=== PATIENT | female | born 1970 | race African-American/Black ===

== ENCOUNTER 2019-03-25 07:49 | Outpatient (CLI) | payer OTHER ==
--- NOTE | 2019-03-25 10:00 | MRI ---
MRI RIGHT SHOULDER: DATE: 03/25/2019. PROVIDED CLINICAL HISTORY: Right shoulder pain status post injury. FINDINGS: Evaluation is limited by patient motion, particularly on the axial sequence. There is full-thickness, full-width retracted tearing of the supraspinatus and infraspinatus tendons. No evidence for full-thickness tear involving subscapularis or teres minor. The long head biceps t endon appears grossly intact and normally located, with evaluation limited due to patient motion. The glenoid labrum and glenohumeral articular cartilage are suboptimally evaluated in the absence of joint distention. Acromioclavicular joint osteoarthrosis is demonstrated. Rotator cuff muscular volume demonstrates mi ld muscular volume loss involving supraspinatus and infraspinatus. No focal concerning regional yaron ow or muscular signal abnormality is evident. IMPRESSION: 1. Limited study due to patient motion. 2. Full-thickness, full-width retracted tears of supraspinatus and infraspinatus tendons. 3. Acromioclavicular osteoarthrosis. POS: [facility]
== END 2019-03-25 07:50 | disposition home or self-care (01) ==
LOC: TBSIIMAG 07:49
PROVIDERS: ATTEND Family Medicine
DX: S49.91XD Unspecified injury of right shoulder and upper arm, subsequent encounter (principal); M75.121 Complete rotator cuff tear or rupture of right shoulder, not specified as traumatic; M19.011 Primary osteoarthritis, right shoulder

== ENCOUNTER 2019-06-18 09:06 | Inpatient (IN) | payer OTHER ==
[2019-06-18] MEDS ORDERED: Midazolam HCl 2 mg/2 ml Vial ONE (09:32)
[2019-06-18] MEDS ORDERED: Fentanyl 100 MCG/2 ML VIAL ONE ×2 (09:32→14:44)
[2019-06-18 09:58] LABS: #Eosinphils 0.3 thou/uL (0.0-0.7); #Lymphocytes 1.9 thou/uL (1.20-3.40); #Monocytes 0.4 thou/uL (0.11-0.59); #Neutrophils 2.8 thou/uL (1.40-6.50); %Basophils 0.3 % (0.0-1.0); %Eosinophils 4.9 % (0.0-10.0); %Lymphocytes 34.7 % (21.0-51.0); %Monocytes 7.9 % (0.0-10.0); %Neutrophils 52.3 % (42.0-75.0); Hemoglobin 12.3 g/dL (12.0-16.0); Mean Corpuscular HGB CONC 32.8 g/dL (32.0-36.0); Mean Corpuscular Hemoglobin 28.7 pg (27.0-31.0); Mean Corpuscular Volume 87.4 fL (78.0-98.0); Mean Platelet Volume 7.3 fL (7.4-10.4); Platelet Count 345 thou/uL (130-400); RBC Distribution Width 13.8 % (11.5-14.5); White Blood Cell (WBC) Count 5.4 thou/uL (4.8-10.8)
[2019-06-18 10:20] LABS: Anion Gap 12 mmol/L (10-20); BUN (Urea Nitrogen) 20 mg/dL (7.0-18.7); Calc. Creatinine Clearance 170 mL/min (70-130); Calcium 8.8 mg/dL (7.8-10.44); Carbon Dioxide 23 mmol/L (22-29); Chloride 105 mmol/L (98-107); Estimated GFR-MDRD 69; Glucose 88 mg/dL (70-105); Potassium 4.5 mmol/L (3.5-5.1); Sodium 135 mmol/L (136-145)
[2019-06-18] MEDS ORDERED: Ondansetron PF 4 MG/2 ML Vial IVP PRN (10:43)
[2019-06-18] MEDS ORDERED: HYDROcodone/Acetaminophen 10/325 mg Tablet PO PRN ×2 (10:43)
[2019-06-18] MEDS ORDERED: Zolpidem Tartrate 5 MG TAB PO PRN (10:43)
[2019-06-18] MEDS ORDERED: Ropivacaine 0.2% 550 ML 550 ML NERVE BLCK SCH (10:43)
[2019-06-18] MEDS ORDERED: Promethazine HCl 25 MG/ML VIAL IM PRN ×2 (10:43→14:44)
[2019-06-18] MEDS ORDERED: traMADol HCl 50 MG TAB PO PRN ×2 (10:43)
[2019-06-18] MEDS ORDERED: Lidocaine 2% Jelly 5 ML TUBE ONE (11:47)
[2019-06-18] MEDS ORDERED: Phenylephrine HCL 10 MG/ML VIAL ONE (11:47)
[2019-06-18] MEDS ORDERED: Albuterol Sulfate HFA (OR ONLY) ONE (12:18)
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
[2019-06-18] MEDS ORDERED: Ropivacaine 0.5% HCl/PF (150 MG/30 ML VIAL) ONE (13:07)
[2019-06-18] MEDS ORDERED: Ropivacaine 0.2% HCl/PF (40 MG/20 ML VIAL) ONE (13:07)
[2019-06-18] MEDS ORDERED: Dexamethasone 20 MG/5 ML VIAL ONE (14:28)
[2019-06-18] MEDS ORDERED: Glycopyrrolate 0.2 MG/ML 5 ML SYRINGE ONE (14:28)
[2019-06-18] MEDS ORDERED: Rocuronium Bromide 10 MG/ML (10ML VIAL) ONE (14:28)
[2019-06-18] MEDS ORDERED: Ondansetron PF 4 MG/2 ML Vial ONE (14:28)
[2019-06-18] MEDS ORDERED: ePHEDrine 50 MG/ML VIAL ONE (14:28)
[2019-06-18] MEDS ORDERED: PROVENTIL INHALER 6.7 G (200 INHALATIONS) ONE (14:28)
[2019-06-18] MEDS ORDERED: PROPOFOL 200 MG/20 ML VIAL ONE (14:28)
[2019-06-18] MEDS ORDERED: PHENYLEPHRINE-NS 100 MCG/ML 10 ML SYRINGE ONE (14:28)
[2019-06-18] MEDS ORDERED: Promethazine HCl 25 MG/ML VIAL SLOW IVP PRN (14:44)
[2019-06-18] MEDS ORDERED: Ondansetron HCl/PF 4 MG/2 ML Vial IVP PRN (14:44)
[2019-06-18] MEDS ORDERED: Ketorolac Tromethamine 30 MG/ML VIAL ONE (15:26)
[2019-06-18 17:26] VITALS: BMI 42.9
[2019-06-18] MEDS ORDERED: Morphine 2 MG/ML SYRINGE SLOW IVP PRN (17:27)
[2019-06-18] MEDS ORDERED: Acetaminophen 325 MG TAB PO PRN (17:27)
[2019-06-18] MEDS ORDERED: Methocarbamol 500 MG TAB PO PRN (17:30)
[2019-06-18] MEDS ORDERED: diphenhydrAMINE 50 MG CAP PO PRN (17:30)
[2019-06-18] MEDS ORDERED: Milk Of Magnesia 30 ML UDCUP PO PRN (17:32)
[2019-06-18] MEDS ORDERED: Bisacodyl 10 MG SUPP PR PRN (17:33)
[2019-06-18] MEDS: CEFAZOLIN 2 GM in Premix Bag 1 BAG IVPB SCH (18:19)
[2019-06-18] MEDS: Dextrose 5 %-0.45 % NaCl 1,000 ML IV SCH (18:19)
[2019-06-18] MEDS ORDERED: PROVENTIL INHALER 6.7 G (200 INHALATIONS) INH PRN (18:58)
[2019-06-18] MEDS: hydrALAZINE 25 MG TAB PO SCH (20:35)
[2019-06-18] MEDS: Sacubitril 49 MG/Valsartan 51 MG TABLET PO SCH (20:35)
[2019-06-18] MEDS: Ketorolac Tromethamine 30 MG/ML VIAL IVP SCH (20:36)
[2019-06-18] MEDS: Carvedilol 25 MG TAB PO SCH (20:38)
[2019-06-18] MEDS ORDERED: Methocarbamol 500 MG TAB PO SCH (21:00)
[2019-06-18] MEDS ORDERED: [UNRECOGNIZED DRUG - OTHER] PO SCH (21:00)
[2019-06-19] MEDS: Ketorolac Tromethamine 30 MG/ML VIAL IVP SCH ×3 (03:03→14:42)
[2019-06-19] MEDS: CEFAZOLIN 2 GM in Premix Bag 1 BAG IVPB SCH (03:05)
[2019-06-19] MEDS ORDERED: Mometasone/Formoterol 120 PUFF INHALER INH SCH (06:30)
[2019-06-19] MEDS: hydrALAZINE 25 MG TAB PO SCH (08:34)
[2019-06-19] MEDS: Carvedilol 25 MG TAB PO SCH (08:35)
[2019-06-19] MEDS: Sacubitril 49 MG/Valsartan 51 MG TABLET PO SCH (08:37)
--- NOTE | 2019-06-19 08:54 | OP ---
DATE OF PROCEDURE: 06/18/2019 PREOPERATIVE DIAGNOSIS: Right full-thickness supraspinatus, infraspinatus rotator cuff tear. POSTOPERATIVE DIAGNOSES: Right full-thickness supraspinatus, infraspinatus rotator cuff tear. PROCEDURE PERFORMED: Right open rotator cuff repair with acromioplasty. REGULATORY PROCESS MANAGER: Mamadou Franklin. ANESTHESIA: The patient received a general endotracheal intubation and interscalene block. ESTIMATED BLOOD LOSS: 75 mL. TOURNIQUET TIME: None. IMPLANTS: 5.5 Arthrex metal corkscrew x2 and 4.75 SwiveLock x2. The 5.5 corkscrews were triple loaded. ANTIBIOTICS: Ancef 2 g. COMPLICATIONS: None. HISTORY OF PRESENT ILLNESS: Ms. Garcia is a 48-year-old female, sustained an injury at work. The patient had this back into August, continued to have pain, pain with overhead activities. I discussed with the patient, given the patient's morbid obesity that it would be difficult to perform an arthroscopic repair and felt an open repair to be more efficacious. I discussed with the patient the risks and benefits of the surgery to include pain, scar, bleeding, infection, damage to vital structures, decreased range of motion or strength, fracture above or below where implants were placed, failure of repair, loss of life or limb. I discussed these risks and benefits with the patient and she elected to proceed. DESCRIPTION OF PROCEDURE: Time-out was performed designating the patient's right upper extremity as the operating site, based on site, consents, and marking. After time-out, the patient's right arm was prepped and draped in sterile fashion. We placed Ioban over the skin. After prep and drape of the skin, we made an incision just posterior to anterior edge of the acromion, obliquely down following what would potentially be the raphe distally. We finished our incision about 5.5 cm. We made incision down on the raphe, approximately about 2 cm and bluntly dissected distally. We took the cautery and took the anterior raphe off the acromion anteriorly and released it somewhat posteriorly. We used the saw to cut the acromion for acromioplasty for exposure as well as for removing the acromion to expose our rotator cuff. We cleaned up our rotator cuff using a curette and rongeur to create bleeding bone on the edge of the footprint as well as denuding some of the cartilage surface off. We placed two anchors, one anterior in the footprint, one posterior in the footprint, passing triple loaded anchors passing first a stay stitch that we used as a traction stitch which was in the middle of a U-shaped tear. We placed three stitches anterior and three posterior. The most posterior and anterior stitches were horizontal mattress, the other 4 were Memo-Charles stitches. We then tied from posterior to anterior. We used a limb from each suture and passed a double row laterally to compress down and pass our anterior first with a 4.75 SwiveLock and our posterior 4.75. We then washed the joint out again. We passed #2 Ethibond stitch in a Memo-Charles stitch passed through the bone over the top to close the acromion to the deltoid raphe with three total stitches. We cut those. We then washed, closed with 0 Vicryl, the fascia of the deltoid. We closed subcu with 0, 2-0, and justin. The patient will be admitted overnight, given the patient's morbid obesity and block, I am concerned about potential complication, therefore, she will be admitted overnight for monitoring and see how she does tomorrow. The block was intentionally had diminished volume to decrease potential diaphragmatic weakness because of blockage of the phrenic nerve. The patient will be discharged tomorrow and follow up in 10 to 14 days. Job ID: [id number]
[2019-06-19] MEDS ORDERED: Hydrochlorothiazide 25 MG TAB PO SCH (09:00)
[2019-06-19] MEDS: Dextrose 5 %-0.45 % NaCl 1,000 ML IV SCH (11:12)
[2019-06-19 11:41] VITALS: BP 122/81; TEMP 98.4
== END 2019-06-19 15:15 | disposition home or self-care (01) | DRG 511 ==
LOC: SDC 09:06 → SURG A 17:10
PROVIDERS: ADMIT Orthopaedic Surgery; ATTEND Orthopaedic Surgery
PROC: 0LQ10ZZ Repair Right Shoulder Tendon, Open Approach (ICD-10-PCS; principal; 2019-06-18)
PROC: 0RNJ0ZZ Release Right Shoulder Joint, Open Approach (ICD-10-PCS; 2019-06-18)
DX: S46.011A Strain of muscle(s) and tendon(s) of the rotator cuff of right shoulder, initial encounter (principal); I42.0 Dilated cardiomyopathy; Z68.41 Body mass index [BMI] 40.0-44.9, adult; I10 Essential (primary) hypertension; K21.9 Gastro-esophageal reflux disease without esophagitis; J45.909 Unspecified asthma, uncomplicated; E66.01 Morbid (severe) obesity due to excess calories; Z88.1 Allergy status to other antibiotic agents; W19.XXXA Unspecified fall, initial encounter
CPT/HCPCS: 80048; 85025; A4306; C1713; J0690; J1100; J1885; J2250; J2370; J2405; J2704; J2795; J3010; J3490

== ENCOUNTER 2021-01-03 10:34 | Inpatient (IN) | payer SELFPAY ==
[2021-01-03] MEDS ORDERED: Iopamidol 370 76% 100 ML VIAL ONE (10:42)
[2021-01-03 12:27] LABS: CKMB 2.9 ng/mL (0-6.6)
[2021-01-03 16:41] VITALS: BMI 62.0
[2021-01-03 17:24] LABS: #Eosinphils 0.4 thou/uL (0.0-0.7); #Lymphocytes 1.8 thou/uL (1.20-3.40); #Monocytes 0.4 thou/uL (0.11-0.59); #Neutrophils 2.6 thou/uL (1.40-6.50); %Basophils 0.2 % (0.0-1.0); %Eosinophils 8.6 % (0.0-10.0); %Monocytes 7.6 % (0.0-10.0); %Neutrophils 48.6 % (42.0-75.0); Hemoglobin 12.2 g/dL (12.0-16.0); Mean Corpuscular HGB CONC 32.2 g/dL (32.0-36.0); Mean Corpuscular Volume 86.9 fL (78.0-98.0); Mean Platelet Volume 7.3 fL (7.4-10.4); Platelet Count 334 thou/uL (130-400); RBC Distribution Width 15.1 % (11.5-14.5); Red Blood Cell (RBC) Count 4.36 mill/uL (4.20-5.40); White Blood Cell (WBC) Count 5.3 thou/uL (4.8-10.8)
[2021-01-03 17:49] LABS: Troponin I 0.047 ng/mL (< 0.028)
[2021-01-03 17:55] LABS: ALT (SGPT) 13 U/L (8-55); AST (SGOT) 20 U/L (5-34); Albumin 3.5 g/dL (3.5-5.0); Alkaline Phosphatase 76 U/L (40-110); Anion Gap 14 mmol/L (10-20); BUN (Urea Nitrogen) 19 mg/dL (7.0-18.7); Bilirubin, Total 0.4 mg/dL (0.2-1.2); Calc. Creatinine Clearance 147 mL/min (70-130); Calcium 8.9 mg/dL (7.8-10.44); Carbon Dioxide 27 mmol/L (22-29); Chloride 101 mmol/L (98-107); Globulin 3.4 g/dL (2.4-3.5); Glucose 83 mg/dL (70-105); Magnesium 1.9 mg/dL (1.6-2.6); Potassium 3.3 mmol/L (3.5-5.1); Protein, Total 6.9 g/dL (6.0-8.3); Sodium 139 mmol/L (136-145)
[2021-01-03] MEDS ORDERED: Potassium Chloride 20 MEQ TAB PO SCH (18:15)
[2021-01-03] MEDS: Benzonatate 100 MG CAP PO PRN (19:38)
[2021-01-03] MEDS: Famotidine 20 MG TAB PO SCH (20:22)
[2021-01-03 21:52] LABS: Troponin I 0.046 ng/mL (< 0.028)
[2021-01-04 05:06] LABS: #Eosinphils 0.3 thou/uL (0.0-0.7); #Monocytes 0.4 thou/uL (0.11-0.59); #Neutrophils 2.2 thou/uL (1.40-6.50); %Basophils 0.4 % (0.0-1.0); %Eosinophils 6.9 % (0.0-10.0); %Lymphocytes 40.4 % (21.0-51.0); %Monocytes 8.8 % (0.0-10.0); %Neutrophils 43.6 % (42.0-75.0); Hemoglobin 12.1 g/dL (12.0-16.0); Mean Corpuscular HGB CONC 31.5 g/dL (32.0-36.0); Mean Corpuscular Hemoglobin 27.3 pg (27.0-31.0); Mean Corpuscular Volume 86.7 fL (78.0-98.0); Mean Platelet Volume 7.4 fL (7.4-10.4); Platelet Count 345 thou/uL (130-400); RBC Distribution Width 15.1 % (11.5-14.5); Red Blood Cell (RBC) Count 4.43 mill/uL (4.20-5.40)
[2021-01-04 05:29] LABS: Anion Gap 14 mmol/L (10-20); BUN (Urea Nitrogen) 19 mg/dL (7.0-18.7); Calc. Creatinine Clearance 170 mL/min (70-130); Calcium 8.6 mg/dL (7.8-10.44); Carbon Dioxide 23 mmol/L (22-29); Chloride 103 mmol/L (98-107); Glucose 109 mg/dL (70-105); Potassium 3.5 mmol/L (3.5-5.1); Sodium 136 mmol/L (136-145)
[2021-01-04] MEDS: Furosemide 20 MG/2 ML VIAL SLOW IVP SCH ×2 (06:19→14:46)
[2021-01-04] MEDS: Famotidine 20 MG TAB PO SCH ×2 (08:13→21:58)
[2021-01-04] MEDS ORDERED: Magnesium 2 GM/50 ML 2 GM in Premix Bag 1 BAG IVPB SCH (08:15)
[2021-01-04] MEDS ORDERED: Aspirin 325 MG TAB PO SCH ×3 (09:00→10:45)
[2021-01-04] MEDS ORDERED: Non-Formulary Item 1 EACH (Albuterol Sulfate [Proventil Hfa] 200 PUFF Inh) INH PRN (09:17)
[2021-01-04] MEDS ORDERED: Aspirin Chewable 81 MG TAB PO SCH (10:45)
[2021-01-04] MEDS: Benzonatate 100 MG CAP PO PRN (11:15)
[2021-01-04] MEDS: Albuterol 200 PUFF (6.7GM INHALER) INH PRN ×3 (11:50→22:36)
[2021-01-04] MEDS: Acetaminophen 325 MG TAB PO PRN (14:54)
[2021-01-04] MEDS ORDERED: FLU VACC QS2020-21(6MOS UP)/PF 60 MCG/0.5 ML SYRINGE IM ONE (17:45)
[2021-01-04] MEDS ORDERED: Potassium Chloride 20 MEQ TAB PO SCH (18:30)
[2021-01-04] MEDS ORDERED: Carvedilol 25 MG TAB PO SCH ×2 (21:00)
[2021-01-04] MEDS: Carvedilol 25 MG TAB PO SCH (21:57)
[2021-01-05 05:34] LABS: #Eosinphils 0.3 thou/uL (0.0-0.7); #Monocytes 0.6 thou/uL (0.11-0.59); #Neutrophils 2.8 thou/uL (1.40-6.50); %Basophils 0.3 % (0.0-1.0); %Eosinophils 5.9 % (0.0-10.0); %Lymphocytes 34.9 % (21.0-51.0); %Monocytes 9.6 % (0.0-10.0); %Neutrophils 49.3 % (42.0-75.0); Hemoglobin 12.2 g/dL (12.0-16.0); Mean Corpuscular HGB CONC 32.4 g/dL (32.0-36.0); Mean Corpuscular Hemoglobin 28.3 pg (27.0-31.0); Mean Corpuscular Volume 87.4 fL (78.0-98.0); Mean Platelet Volume 7.4 fL (7.4-10.4); Platelet Count 335 thou/uL (130-400); Red Blood Cell (RBC) Count 4.31 mill/uL (4.20-5.40); White Blood Cell (WBC) Count 5.7 thou/uL (4.8-10.8)
[2021-01-05] MEDS: Furosemide 20 MG/2 ML VIAL SLOW IVP SCH ×2 (05:58→15:39)
[2021-01-05 06:00] LABS: Anion Gap 10 mmol/L (10-20); BUN (Urea Nitrogen) 24 mg/dL (7.0-18.7); Calc. Creatinine Clearance 159 mL/min (70-130); Calcium 8.7 mg/dL (7.8-10.44); Carbon Dioxide 30 mmol/L (22-29); Chloride 103 mmol/L (98-107); Glucose 109 mg/dL (70-105); Potassium 3.6 mmol/L (3.5-5.1); Sodium 139 mmol/L (136-145)
[2021-01-05] MEDS: Mometasone 100 MCG/Formoterol 5 MCG 120 PUFF INHALER INH SCH (07:26)
[2021-01-05] MEDS ORDERED: DISK W DE IH SCH (09:00)
[2021-01-05] MEDS ORDERED: FLUTICASONE IH SCH (09:00)
[2021-01-05] MEDS ORDERED: SALMETEROL IH SCH (09:00)
[2021-01-05] MEDS ORDERED: [UNRECOGNIZED DRUG - OTHER] IH SCH (09:00)
[2021-01-05] MEDS: Aspirin Chewable 81 MG TAB PO SCH (09:11)
[2021-01-05] MEDS: Famotidine 20 MG TAB PO SCH ×2 (09:11→20:38)
[2021-01-05] MEDS: Carvedilol 25 MG TAB PO SCH ×2 (09:12→20:38)
[2021-01-05] MEDS: Benzonatate 100 MG CAP PO PRN (09:17)
[2021-01-05] MEDS: Albuterol 200 PUFF (6.7GM INHALER) INH PRN ×2 (09:53→20:04)
[2021-01-05] MEDS: Sacubitril 49 MG/Valsartan 51 MG TABLET PO SCH (20:38)
[2021-01-06] MEDS: Benzonatate 100 MG CAP PO PRN ×2 (03:56→21:02)
[2021-01-06 04:48] LABS: #Basophils 0.1 thou/uL (0.0-0.2); #Eosinphils 0.2 thou/uL (0.0-0.7); #Monocytes 0.4 thou/uL (0.11-0.59); #Neutrophils 1.9 thou/uL (1.40-6.50); %Basophils 1.9 % (0.0-1.0); %Eosinophils 4.5 % (0.0-10.0); %Monocytes 7.9 % (0.0-10.0); %Neutrophils 41.6 % (42.0-75.0); Hemoglobin 12.8 g/dL (12.0-16.0); Mean Corpuscular HGB CONC 32.5 g/dL (32.0-36.0); Mean Corpuscular Hemoglobin 28.1 pg (27.0-31.0); Mean Corpuscular Volume 86.2 fL (78.0-98.0); Mean Platelet Volume 7.6 fL (7.4-10.4); Platelet Count 350 thou/uL (130-400); RBC Distribution Width 15.1 % (11.5-14.5); Red Blood Cell (RBC) Count 4.57 mill/uL (4.20-5.40); White Blood Cell (WBC) Count 4.4 thou/uL (4.8-10.8)
[2021-01-06 05:09] LABS: Anion Gap 14 mmol/L (10-20); BUN (Urea Nitrogen) 22 mg/dL (7.0-18.7); Calc. Creatinine Clearance 166 mL/min (70-130); Calcium 8.7 mg/dL (7.8-10.44); Carbon Dioxide 27 mmol/L (22-29); Chloride 104 mmol/L (98-107); Glucose 112 mg/dL (70-105); Potassium 3.7 mmol/L (3.5-5.1); Sodium 141 mmol/L (136-145)
[2021-01-06] MEDS ORDERED: Furosemide 40 MG/4 ML VIAL SLOW IVP SCH (06:00)
[2021-01-06] MEDS: Mometasone 100 MCG/Formoterol 5 MCG 120 PUFF INHALER INH SCH (07:04)
[2021-01-06] MEDS: Albuterol 200 PUFF (6.7GM INHALER) INH PRN ×2 (07:04→22:15)
[2021-01-06] MEDS: Sacubitril 49 MG/Valsartan 51 MG TABLET PO SCH ×2 (08:39→21:00)
[2021-01-06] MEDS: Carvedilol 25 MG TAB PO SCH ×2 (08:39→20:59)
[2021-01-06] MEDS: Famotidine 20 MG TAB PO SCH ×2 (08:39→21:00)
[2021-01-06] MEDS: Aspirin Chewable 81 MG TAB PO SCH (08:39)
[2021-01-06] MEDS: Acetaminophen 325 MG TAB PO PRN ×2 (08:40→20:59)
[2021-01-06] MEDS ORDERED: Spironolactone 25 MG TAB PO SCH (13:30)
[2021-01-07] MEDS: Aspirin Chewable 81 MG TAB PO SCH (09:02)
[2021-01-07] MEDS: Sacubitril 49 MG/Valsartan 51 MG TABLET PO SCH ×2 (09:02→19:48)
[2021-01-07] MEDS: Famotidine 20 MG TAB PO SCH ×2 (09:02→19:48)
[2021-01-07] MEDS: Carvedilol 25 MG TAB PO SCH ×2 (09:02→19:48)
[2021-01-07] MEDS: Acetaminophen 325 MG TAB PO PRN ×3 (09:03→19:49)
[2021-01-07] MEDS: Mometasone 100 MCG/Formoterol 5 MCG 120 PUFF INHALER INH SCH (09:40)
[2021-01-07] MEDS: Albuterol 200 PUFF (6.7GM INHALER) INH PRN ×2 (09:40→21:42)
[2021-01-07] MEDS: Benzonatate 100 MG CAP PO PRN (19:48)
[2021-01-08] MEDS: Famotidine 20 MG TAB PO SCH ×2 (09:25→20:35)
[2021-01-08] MEDS: Sacubitril 49 MG/Valsartan 51 MG TABLET PO SCH ×2 (09:25→20:35)
[2021-01-08] MEDS: Aspirin Chewable 81 MG TAB PO SCH (09:25)
[2021-01-08] MEDS: Carvedilol 25 MG TAB PO SCH ×2 (09:25→20:35)
[2021-01-08] MEDS: Benzonatate 100 MG CAP PO PRN ×2 (09:31→20:35)
[2021-01-08] MEDS: Acetaminophen 325 MG TAB PO PRN ×2 (09:36→20:35)
[2021-01-08] MEDS: Mometasone 100 MCG/Formoterol 5 MCG 120 PUFF INHALER INH SCH (10:11)
[2021-01-08] MEDS: Albuterol 200 PUFF (6.7GM INHALER) INH PRN ×2 (10:12→20:39)
[2021-01-08] MEDS ORDERED: Furosemide 20 MG TAB PO SCH (12:45)
[2021-01-08 14:42] LABS: Hemoglobin 12.8 g/dL (12.0-16.0); Mean Corpuscular HGB CONC 31.2 g/dL (32.0-36.0); Mean Corpuscular Hemoglobin 27.4 pg (27.0-31.0); Mean Corpuscular Volume 87.8 fL (78.0-98.0); Mean Platelet Volume 7.7 fL (7.4-10.4); Platelet Count 375 thou/uL (130-400); RBC Distribution Width 14.9 % (11.5-14.5); Red Blood Cell (RBC) Count 4.68 mill/uL (4.20-5.40); White Blood Cell (WBC) Count 5.5 thou/uL (4.8-10.8)
[2021-01-08 14:59] LABS: Anion Gap 11 mmol/L (10-20); BUN (Urea Nitrogen) 23 mg/dL (7.0-18.7); Calc. Creatinine Clearance 143 mL/min (70-130); Calcium 8.9 mg/dL (7.8-10.44); Carbon Dioxide 29 mmol/L (22-29); Chloride 102 mmol/L (98-107); Glucose 80 mg/dL (70-105); Potassium 3.9 mmol/L (3.5-5.1); Sodium 138 mmol/L (136-145)
[2021-01-09 05:04] LABS: Calc. Creatinine Clearance 166 mL/min (70-130); Potassium 3.8 mmol/L (3.5-5.1)
[2021-01-09] MEDS: Albuterol 200 PUFF (6.7GM INHALER) INH PRN (07:40)
[2021-01-09] MEDS: Mometasone 100 MCG/Formoterol 5 MCG 120 PUFF INHALER INH SCH (07:41)
[2021-01-09] MEDS: Sacubitril 49 MG/Valsartan 51 MG TABLET PO SCH (08:59)
[2021-01-09] MEDS: Acetaminophen 325 MG TAB PO PRN (08:59)
[2021-01-09] MEDS: Aspirin Chewable 81 MG TAB PO SCH (08:59)
[2021-01-09] MEDS: Carvedilol 25 MG TAB PO SCH (08:59)
[2021-01-09] MEDS: Famotidine 20 MG TAB PO SCH (08:59)
[2021-01-09] MEDS ORDERED: Furosemide 20 MG TAB PO SCH (09:00)
[2021-01-09] MEDS: Benzonatate 100 MG CAP PO PRN (09:05)
[2021-01-09] MEDS ORDERED: Spironolactone 25 MG TAB PO SCH (09:45)
[2021-01-09 11:53] VITALS: BP 118/71; TEMP 97.8
[2021-01-09] MEDS ORDERED: predniSONE 20 MG TAB PO SCH (12:45)
[2021-01-09] MEDS ORDERED: Amoxicillin/Potassium Clav 875 MG TAB PO SCH (21:00)
[2021-01-10] MEDS ORDERED: predniSONE 20 MG TAB PO SCH (08:00)
[2021-01-10] MEDS ORDERED: Spironolactone 25 MG TAB PO SCH (09:00)
== END 2021-01-09 15:14 | disposition home or self-care (01) | DRG 280 ==
LOC: ERS 10:34 → 3SE 12:03 → OBSVTOIN 01-04 12:05 → 2NO 01-05 18:23
PROVIDERS: ADMIT Internal Medicine; ATTEND Internal Medicine
DX: I11.0 Hypertensive heart disease with heart failure (principal); I21.A1 Myocardial infarction type 2; J96.01 Acute respiratory failure with hypoxia; Z20.822 Contact with and (suspected) exposure to COVID-19; Z23 Encounter for immunization; J18.9 Pneumonia, unspecified organism; J45.901 Unspecified asthma with (acute) exacerbation; Z68.44 Body mass index [BMI] 60.0-69.9, adult; N17.9 Acute kidney failure, unspecified; I50.23 Acute on chronic systolic (congestive) heart failure; I42.9 Cardiomyopathy, unspecified; I42.8 Other cardiomyopathies; E66.01 Morbid (severe) obesity due to excess calories; E87.6 Hypokalemia; R00.1 Bradycardia, unspecified; Z88.1 Allergy status to other antibiotic agents; Z79.899 Other long term (current) drug therapy; Z79.51 Long term (current) use of inhaled steroids; Z82.49 Family history of ischemic heart disease and other diseases of the circulatory system
CPT/HCPCS: 36415; 71045; 71275; 80048; 82553; 82565; 83735; 83880; 84132; 84443; 85025; 85027; 85379; 90471; 90662; 90732; 93005; 93306; 93798; 96374; 96375; G0008; G0009; G0378; J1940; J3475; J7512; Q9967

== ENCOUNTER 2022-01-29 08:08 | Outpatient (CLI) | payer MEDICARE | END 2022-01-29 08:09 | disposition home or self-care (01) | LOC: BICMAMMO 08:08 | PROVIDERS: ATTEND Family Medicine | DX: Z12.31 Encounter for screening mammogram for malignant neoplasm of breast (principal); Z80.3 Family history of malignant neoplasm of breast | CPT/HCPCS: 77063; 77067 ==

== ENCOUNTER 2022-05-10 09:12 | Outpatient (CLI) | payer OTHER | END 2022-05-10 09:13 | disposition home or self-care (01) | LOC: DTY/OP 09:12 | PROVIDERS: ATTEND Surgery | DX: E66.01 Morbid (severe) obesity due to excess calories (principal) | CPT/HCPCS: 97802 ==

== ENCOUNTER 2022-08-09 08:46 | Outpatient (CLI) | payer OTHER ==
[2022-08-09 11:13] LABS: #Eosinphils 0.2 10x3/uL (0.0-0.5); #Monocytes 0.4 10x3/uL (0.0-1.1); #Neutrophils 2.5 10x3/uL (1.5-8.4); %Basophils 0.8 % (0.0-2.0); %Eosinophils 3.2 % (0.0-6.0); %Lymphocytes 37.8 % (18.0-47.0); %Monocytes 7.2 % (0.0-10.0); %Neutrophils 50.8 % (40.0-75.0); Hemoglobin 12.9 g/dL (12.0-15.5); Mean Corpuscular HGB CONC 32.7 g/dL (32.0-36.0); Mean Corpuscular Hemoglobin 28.8 pg (27.0-33.0); Mean Corpuscular Volume 87.9 fl (81.6-98.3); Mean Platelet Volume 10.3 fl (7.4-10.4); Platelet Count 355 10x3/uL (150-450); RBC Distribution Width 15.3 % (11.5-14.5); Red Blood Cell (RBC) Count 4.48 10x6/uL (3.90-5.03)
[2022-08-09 11:43] LABS: ALT (SGPT) 15 U/L (8-55); AST (SGOT) 23 U/L (5-34); Albumin 4.1 g/dL (3.5-5.0); Alkaline Phosphatase 53 U/L (40-110); Anion Gap 14 mmol/L (10-20); BUN (Urea Nitrogen) 33 mg/dL (7.0-18.7); Bilirubin, Total 0.5 mg/dL (0.2-1.2); Calc. Creatinine Clearance 0 mL/min (70-130); Calcium 9.5 mg/dL (7.8-10.44); Carbon Dioxide 23 mmol/L (22-29); Chloride 106 mmol/L (98-107); Estimated GFR 47; Globulin 3.3 g/dL (2.4-3.5); Glucose 98 mg/dL (70-105); Potassium 5.3 mmol/L (3.5-5.1); Protein, Total 7.4 g/dL (6.0-8.3); Sodium 138 mmol/L (136-145)
[2022-08-09 14:45] LABS: Hemoglobin A1c 5.4 % (4.0-6.0)
== END 2022-08-09 08:47 | disposition home or self-care (01) ==
LOC: LABBT 08:46
PROVIDERS: ATTEND Surgery
DX: Z01.818 Encounter for other preprocedural examination (principal); E66.01 Morbid (severe) obesity due to excess calories; Z20.822 Contact with and (suspected) exposure to COVID-19; I51.7 Cardiomegaly; R94.31 Abnormal electrocardiogram [ECG] [EKG]
CPT/HCPCS: 71046; 80053; 83036; 85025; 87811; 93005; 93010

== ENCOUNTER 2022-08-09 09:00 | Inpatient (IN) | payer OTHER ==
[2022-08-10 12:36] VITALS: BMI 64.8
[2022-08-14] MEDS ORDERED: Midazolam HCl 2 mg/2 ml Vial ONE (06:35)
[2022-08-14] MEDS ORDERED: fentaNYL Citrate/PF 100 MCG/2 ML SYRINGE ONE ×2 (06:35→06:57)
[2022-08-14] MEDS ORDERED: EPINEPHrine 1 MG/ML AMP ONE (06:47)
[2022-08-14] MEDS ORDERED: Bupivacaine 0.25% HCL 30 ML VIAL ONE (06:47)
[2022-08-14] MEDS ORDERED: Promethazine HCl 25 MG/ML VIAL ONE ×2 (06:57→13:55)
[2022-08-14] MEDS ORDERED: Lidocaine 2% 6 ML SYR ONE (06:57)
[2022-08-14] MEDS ORDERED: CEFAZOLIN 2 GM VIAL ONE (07:04)
[2022-08-14] MEDS ORDERED: Sodium Chloride 0.9% 100 ML ONE (07:04)
[2022-08-14] MEDS ORDERED: Heparin 5,000 UNITS/ML VIAL ONE (07:04)
[2022-08-14] MEDS ORDERED: ePHEDrine 50 MG/ML VIAL ONE (07:49)
[2022-08-14] MEDS ORDERED: Ondansetron PF 4 MG/2 ML Vial ONE ×2 (07:49→11:15)
[2022-08-14] MEDS ORDERED: PHENYLEPHRINE-NS 100 MCG/ML 10 ML SYRINGE ONE (07:49)
[2022-08-14] MEDS ORDERED: Glycopyrrolate 0.2 MG/ML 5 ML SYRINGE ONE (07:49)
[2022-08-14] MEDS ORDERED: PROPOFOL 200 MG/20 ML VIAL ONE (07:49)
[2022-08-14] MEDS ORDERED: Ketorolac Tromethamine 30 MG/ML VIAL ONE (07:49)
[2022-08-14] MEDS ORDERED: Rocuronium Bromide 10 MG/ML (10ML VIAL) ONE (07:49)
[2022-08-14] MEDS ORDERED: Rocuronium Bromide 50 MG/5 ML VIAL ONE (08:37)
[2022-08-14] MEDS ORDERED: SUGAMMADEX SODIUM 200 MG/2 ML VIAL ONE (08:37)
[2022-08-14] MEDS ORDERED: Dextrose 50% Abboject 50 ML SYRINGE SLOW IVP PRN (09:19)
[2022-08-14] MEDS ORDERED: Hydrocodone-Acetamin 15 ML UDCUP PO PRN (09:19)
[2022-08-14] MEDS ORDERED: diphenhydrAMINE 50 MG/ML VIAL IVP PRN (09:19)
[2022-08-14] MEDS ORDERED: Dextrose 5% in Water 1,000 ML IV PRN (09:19)
[2022-08-14] MEDS ORDERED: Morphine 2 MG/ML VIAL SLOW IVP PRN (09:19)
[2022-08-14] MEDS ORDERED: Promethazine HCl 25 MG/ML VIAL IM PRN ×2 (09:19→09:34)
[2022-08-14] MEDS ORDERED: Ondansetron PF 4 MG/2 ML Vial IVP PRN (09:19)
[2022-08-14] MEDS ORDERED: hydrALAZINE 20 MG/ML VIAL SLOW IVP PRN (09:19)
[2022-08-14] MEDS ORDERED: Morphine 4 MG/ML VIAL SLOW IVP PRN (09:19)
[2022-08-14] MEDS: 1/2 NS w/KCL 20 mEq 1,000 ML IV SCH ×2 (09:30→18:21)
[2022-08-14] MEDS ORDERED: Ondansetron HCl/PF 4 MG/2 ML Vial IVP PRN (09:34)
[2022-08-14] MEDS ORDERED: Promethazine HCl 25 MG/ML VIAL IVPB PRN (09:34)
[2022-08-14] MEDS ORDERED: HYDROmorphone 2 MG/ML VIAL SLOW IVP PRN (09:34)
[2022-08-14] MEDS ORDERED: Fentanyl 100 MCG/2 ML VIAL ONE ×2 (09:42→14:43)
[2022-08-14] MEDS ORDERED: Labetalol HCl 100 MG/20 ML VIAL ONE (10:13)
[2022-08-14] MEDS: Ketorolac Tromethamine 30 MG/ML VIAL IVP SCH ×2 (12:00→18:21)
[2022-08-14] MEDS ORDERED: hydrALAZINE 20 MG/ML VIAL ONE (14:41)
[2022-08-14] MEDS: CEFAZOLIN 2 GM in Sodium Chloride 0.9% 100 ML IVPB SCH ×2 (16:20→21:24)
[2022-08-15] MEDS: 1/2 NS w/KCL 20 mEq 1,000 ML IV SCH ×2 (04:22→09:59)
[2022-08-15] MEDS: Ketorolac Tromethamine 30 MG/ML VIAL IVP SCH ×3 (04:22→12:33)
[2022-08-15 05:33] LABS: #Eosinphils 0.1 thou/uL (0.0-0.7); #Lymphocytes 1.8 thou/uL (1.20-3.40); #Monocytes 0.6 thou/uL (0.11-0.59); #Neutrophils 4.2 thou/uL (1.40-6.50); %Basophils 0.4 % (0.0-1.0); %Eosinophils 1.8 % (0.0-10.0); %Lymphocytes 26.6 % (21.0-51.0); %Monocytes 8.6 % (0.0-10.0); %Neutrophils 62.6 % (42.0-75.0); Hemoglobin 12.7 g/dL (12.0-16.0); Mean Corpuscular HGB CONC 31.3 g/dL (32.0-36.0); Mean Corpuscular Hemoglobin 28.6 pg (27.0-31.0); Mean Corpuscular Volume 91.4 fL (78.0-98.0); Mean Platelet Volume 7.5 fL (7.4-10.4); Platelet Count 314 thou/uL (130-400); RBC Distribution Width 13.5 % (11.5-14.5); Red Blood Cell (RBC) Count 4.45 mill/uL (4.20-5.40); White Blood Cell (WBC) Count 6.7 thou/uL (4.8-10.8)
[2022-08-15 06:04] LABS: Anion Gap 12 mmol/L (10-20); BUN (Urea Nitrogen) 19 mg/dL (7.0-18.7); Calc. Creatinine Clearance 129 mL/min (70-130); Calcium 8.9 mg/dL (7.8-10.44); Carbon Dioxide 24 mmol/L (22-29); Chloride 103 mmol/L (98-107); Estimated GFR 45; Glucose 79 mg/dL (70-105); Sodium 135 mmol/L (136-145)
[2022-08-15] MEDS ORDERED: Enoxaparin Sodium 40 MG/0.4 ML SYRINGE SC SCH (09:00)
[2022-08-15] MEDS ORDERED: Pantoprazole 40 MG VIAL IVP SCH (09:00)
[2022-08-15 12:29] VITALS: BP 127/83; TEMP 98.1
== END 2022-08-15 13:30 | disposition home or self-care (01) | DRG 620 ==
LOC: SURG A 08-14 06:05 → SJJU 08-14 15:38
PROVIDERS: ADMIT Surgery; ATTEND Surgery
PROC: 0DB64Z3 Excision of Stomach, Percutaneous Endoscopic Approach, Vertical (ICD-10-PCS; principal; 2022-08-14)
PROC: 8E0W4CZ Robotic Assisted Procedure of Trunk Region, Percutaneous Endoscopic Approach (ICD-10-PCS; 2022-08-14)
DX: E66.01 Morbid (severe) obesity due to excess calories (principal); Z68.44 Body mass index [BMI] 60.0-69.9, adult; I42.0 Dilated cardiomyopathy; Z20.822 Contact with and (suspected) exposure to COVID-19; J45.909 Unspecified asthma, uncomplicated; I50.9 Heart failure, unspecified; I11.0 Hypertensive heart disease with heart failure; Z79.899 Other long term (current) drug therapy; Z79.82 Long term (current) use of aspirin; Z79.51 Long term (current) use of inhaled steroids; I25.2 Old myocardial infarction; Z98.890 Other specified postprocedural states; Z88.1 Allergy status to other antibiotic agents
CPT/HCPCS: 36415; 80048; 85025; 88307; 94760; C9113; J0171; J0360; J0690; J1644; J1650; J1885; J2250; J2270; J2405; J2550; J2704; J3010; J3480; J3490; S0020